=== PATIENT | female | born 1960 | race Caucasian/White ===

== ENCOUNTER 2022-04-25 14:07 | Outpatient (CLI) | payer OTHER ==
--- NOTE | 2022-04-25 21:51 | XRAY Report ---
PROCEDURE: Knee 4 View BILAT INDICATIONS: BILAT KNEE PAIN TECHNIQUE: 4 views of the bilateral knee(s) were acquired. COMPARISON: None. FINDINGS: Bones: There is prior left total knee arthroplasty. No evidence of hardware loosening or failure. Mod erate to severe tricompartmental osteoarthritis in right knee is seen most notably in medial femoral tibial compartment. No fractures or dislocations. No suspicious bony lesions. Soft tissues: No joint effusion. No suspicious soft tissue calcifications. IMPRESSION: Moderate to severe tricompartmental osteoarthritis in right knee most notably in medial femoral tibial compartment. Prior left total knee arthroplasty. Anatomic bilateral knee alignment. No fracture or dislocation. No gross hardware complication. No significant joint effusion. Reviewed by: Magdi Ovalle MD on 04/25/2022 9:50 PM PST Approved by: Magdi Ovalle MD on 04/25/2022 9:50 PM PST Station ID: [id number]
== END 2022-04-25 14:08 | disposition home or self-care (01) ==
LOC: DI.WOS 14:07
PROVIDERS: ATTEND Orthopaedic Surgery
DX: M17.11 Unilateral primary osteoarthritis, right knee (principal); Z96.652 Presence of left artificial knee joint; M25.562 Pain in left knee

== ENCOUNTER 2023-04-16 08:07 | Outpatient (CLI) | payer MEDICARE, OTHER ==
--- NOTE | 2023-04-16 15:34 | DEXA Report ---
PROCEDURE: Dexa Spine and/or Hip INDICATIONS: OSTEOPOROSIS TECHNIQUE: Dual energy x-ray absorptiometry (DXA) was performed on a [employer] System. Regions measur ed are the AP Spine, femoral neck, and if needed forearm. COMPARISON: None FINDINGS: Lumbar Spine: Bone Mineral Density 1.084 g/cm/cm,T score -0.8. Left Femoral Neck: Bone Mineral Density 0.765 g/cm/cm, T score -2.0. Left Hip: Bone Mineral Density 0.802 g/cm/cm,T score -1.6. (T score greater or equal to -1.0: NORMAL) (T score from -1.1 to -2.4: OSTEOPENIA) (T score less than or equal to -2.5 to: OSTEOPOROSIS) Impression: By WHO criteria, this patient has low bone density (osteopenia) most severe in the femoral neck. Patients with diagnosis of osteoporosis or osteopenia should have regular bone mineral density assess ment. For those eligible for Medicare, routine testing is allowed once every 2 years. Testing frequ ency can be increased for patients who have rapidly progressing disease or for those who are receivin g medical therapy to restore bone mass. Reviewed by: Elena Mijares MD on 04/16/2023 3:33 PM PST Approved by: Elena Mijares MD on 04/16/2023 3:33 PM PST Station ID: [id number]
== END 2023-04-16 08:08 | disposition home or self-care (01) ==
LOC: DI 08:07
PROVIDERS: ATTEND Physician Assistant
DX: M85.88 Other specified disorders of bone density and structure, other site (principal)

== ENCOUNTER 2023-04-30 08:56 | Outpatient (CLI) | payer MEDICARE, OTHER ==
--- NOTE | 2023-05-01 08:13 | SLEEP CARE CONSULTATION ---
Information from patient questionnaire entered by Hal Escobar. I have reviewed and concur with the information entered by Hal Escobar. This document represents the service I personally performed and the decisions made by me, Trever Jack MD, [facility]. History of Present Illness Service Date and Time: 04/30/2023 0856 Reason for Visit: New patient (DENTAL APPLIANCE) Chief Complaint: reports: Insomnia, Snoring, Frequent awakenings at night Date of Onset: 24+YRS Usual bedtime: 9PM Snores at night: Yes Observed to quit breathing while asleep: Yes Sleeps alone due to snoring: Yes Reasons for waking at night: reports: Choking, Pain, Bathroom Toss, Turn, or Twitch while sleeping: Yes Recalls having dreams: Yes Usually gets out of bed at: 7AM Feels refreshed in the morning: No Morning headache: No Sleepy or fatigued during the day: Yes Ever fallen asleep while driving: Yes Takes day naps: Yes Dreams during day naps: No Prior sleep studies: Yes Additional HPI information: I have the pleasure of seeing Mrs. Moura today regarding obstructive sleep apnea. As you know, she is a 63-year-old lady who was originally diagnosed with obstructive sleep apnea-hypopnea in 2001 and tried using a CPAP for 2 3 years. She said it did not work because she removed it during the night. She had another in-laboratory polysomnography in 2009 in [place] that showed an AHI of 34.7 and laura oxygen saturation of 79%. She was treated with oral appliance therapy. In 2014 she had another in-laboratory polysomnography with the oral appliance showing a residual AHI of 5.2. She continued to wear her oral appliance until a year ago when she lost 3 lower molar teeth. She notices that she is more fatigued this year. She started snoring again but her never said she stop breathing. She has lost 23 lbs since her sleep study in 2014. 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 Patient is and lives in [place]. Have you smoked in the past 12 months: No Alcohol use: Yes Alcohol amount and frequency: 1/2 GLASS 3-4 X YEAR Caffeine use: Yes Caffeine amount and frequency: 2-3 CUPS DAILY Family History Family history of sleep disordered breathing: Yes Family Hx Sleep Apnea: Father: Snoring Allergies and Home Medications Known drug allergies: Yes ( LISTED) Drug allergies reviewed: Yes Home medication list reviewed: Yes Allergy and home medication list: Allergies indomethacin [From Indocin] Allergy (Verified 04/25/23 15:07) Anaphylaxis metronidazole [From Flagyl] Allergy (Verified 04/25/23 15:07) Anaphylaxis aspirin Adverse Reaction (Verified 04/25/23 15:07) Unknown NSAIDS (Non-Steroidal Anti-Inflamma Adverse Reaction (Verified 04/25/23 15:07) Unknown Penicillins Adverse Reaction (Verified 04/25/23 15:07) Unknown Sulfa (Sulfonamide Antibiotics) Adverse Reaction (Verified 04/25/23 15:07) Unknown Review of Systems Weight loss over past 5 years: 5-7LBS Cardiovascular: reports: palpitations Respiratory: denies: shortness of breath, wheeze, sputum production, chronic cough, other Gastrointestinal: reports: difficulty swallowing Urinary: denies: incontinence, frequency, urgency, impotence, other Neurological: reports: gait or balance problems Psychiatric: reports: claustrophobia Ear/Nose/Throat: reports: dry mouth/throat, injury to nose, wisdom teeth removed Endocrine: reports: thyroid disease, sluggishness, too hot or cold Musculoskeletal: denies: joint pain, neck pain, back pain, joint swelling, muscle pain or cramping, mobility problems, other Immunologic: reports: allergies to food or environment Physical Exam Vital signs obtained and entered by: HAL Schwartz MA Blood Pressure: 156/87 (RIGHT ARM) Cuff size: regular Heart Rate: 76 O2 Saturation: 98 Height: 5 ft 2.5 in Weight: 127 lb 3.2 oz Body Mass Index: 22.8 BMI Classification: Normal Neck circumference: 13 Mood/affect: Normal HEENT: No craniofacial malformation Nostrils: patent to airflow Turbinates: normal Septum: deviated right Mouth and throat: narrow oropharynx Soft palate: long Hard palate: normal Uvula: normal Uvula visualization: 25% Mallampati Class III Tongue: normal in size Tonsils: small Chin and jaw: Retrognathia Neck: normal w/o lymphadenopathy or thyromegaly Heart: regular rate and rhythm Lungs: clear bilaterally Extremities: no edema or clubbing Neurologic: intact Impression and Plan IMPRESSION: 1. Obstructive Sleep Apnea-Hypopnea Syndrome, severe, as previously diagnosed 13 years ago. She was successfully treated with a mandibular advancing device. Presently, she is not treated because she lost lower molar teeth. She has lost significant amount of weight but she does have retrognathia. Different treatment options including Inspire therapy (hypoglossal nerve stimulation) were discussed. We will need a new sleep study. Plan: 1. Schedule polysomnography and return in 1 to 2 weeks after the study to discuss result and initiate therapy. 2. Avoid long distance driving or when feeling sleepy. 3. Avoid alcohol, sedative and muscle relaxant around bedtime. 4. Avoid sleeping supine. Follow up with Sleep Care in: 1-2 months Time Spent with Patient (minutes): 15
[2023-05-01 08:19] VITALS: BP 156/87; O2SAT 98
== END 2023-04-30 08:57 | disposition home or self-care (01) ==
LOC: SC 08:56
PROVIDERS: ATTEND Internal Medicine Pulmonary Disease
DX: G47.33 Obstructive sleep apnea (adult) (pediatric) (principal); M26.19 Other specified anomalies of jaw-cranial base relationship
CPT/HCPCS: 99202; G0463; 99212

== ENCOUNTER 2023-05-25 19:28 | Outpatient (CLI) | payer MEDICARE, OTHER | END 2023-05-25 19:29 | disposition home or self-care (01) | LOC: SC 19:28 | PROVIDERS: ATTEND Internal Medicine Pulmonary Disease | DX: G47.33 Obstructive sleep apnea (adult) (pediatric) (principal); G47.61 Periodic limb movement disorder | CPT/HCPCS: 95810 ==

== ENCOUNTER 2023-06-01 09:33 | Outpatient (CLI) | payer MEDICARE, OTHER ==
--- NOTE | 2023-06-01 10:01 | Sleep Patient Instructions ---
Sleep Center Visit Summary - Patient Visit Information Reason for Visit: Sleep study follow-up - Patient Instructions Additional Instructions: You are to start Positional therapy to control your sleep apnea. You may obtain positional belts or other commercial devices online. You may also use pillows to position yourself on your side or a T shirt with balls sewn into the back to help keep you on your side to sleep. We would like to follow up with you in a month to check effectiveness of therapy. Please call office to schedule a follow up appointment in the sleep care office 1-2 months. - Clinic Information Contact: [facility] [address] [place] [address] [email or web address] T: [phone]
--- NOTE | 2023-06-01 10:05 | SLEEP CARE CONSULTATION ---
Information from patient questionnaire entered by Amberly Escobar. I have reviewed and concur with the information entered by Amberly Escobar. This document represents the service I personally performed and the decisions made by , Marlene Manuel ARNP. History of Present Illness Service Date and Time: 06/01/2023 0933 Initial [place] Sleepiness Scale score: 10 (04/30/2023) Current [place] Sleepiness Scale score: 17 Additional HPI information: VIRGINIA ANGELA returns for follow up and results of the recently performed polysomnography. The sleep study showed mild obstructive sleep apnea with an average AHI of 8.7 and lauar oxygen saturation of 88%. She had severe PLMs not contributing to sleep fragmentation. I explained the pathophysiology behind obstructive sleep apnea. We then spent quite a bit of time discussing different treatment options. For mild obstructive sleep apnea, surgery and oral appliance are alternatives to nasal CPAP therapy but in moderate or severe cases, nasal CPAP is the most effective and reliable treatment. Because apnea is primarily in supine position, then positional management therapy could be effective. Methods discussed such as positioning with pillows, using a T-shirt with tennis balls in the back or commercial products that have a pillow format on back to prevent supine sleep. Patient counseled not drink alcohol less than 4 hours before bedtime as it can increase snoring and apnea. Patient was cautioned about risks of drowsy driving until sleepiness symptoms resolve. Patient denies drowsy driving. Sleep Study - Results Type of Sleep Study: Polysomnography (COMPLETED 05/25/23) Polysomnography/Home Sleep Study results: IMPRESSION: The quality of the study is good. The patient had normal sleep efficiency. The sleep architecture was abnormal for sleep fragmentation and lack of slow wave sleep (N3). Respiratory monitoring showed mild obstructive sleep apnea-hypopnea (AHI = 8.7) associated with frequent arousals, oxyhemoglobin desaturation and mild hypoxia (laura oxygen saturation of 88%). The respiratory events occurred almost exclusively during supine sleep (supine AHI = 34.9; non-supine = 1.60). Snore was light to very loud in intensity. There was severe periodic leg movement of sleep not contributing to the sleep fragmentation. Cardiac rhythm was normal sinus rhythm without significant arrhythmia. No abnormal behavior (parasomnia) observed during the night. Allergies and Home Medications Known drug allergies: Yes (as listed) Drug allergies reviewed: Yes Home medication list reviewed: Yes (no changes) Allergy and home medication list: Allergies indomethacin [From Indocin] Allergy (Verified 05/30/23 12:05) Anaphylaxis metronidazole [From Flagyl] Allergy (Verified 05/30/23 12:05) Anaphylaxis aspirin Adverse Reaction (Verified 05/30/23 12:05) Unknown NSAIDS (Non-Steroidal Anti-Inflamma Adverse Reaction (Verified 05/30/23 12:05) Unknown Penicillins Adverse Reaction (Verified 05/30/23 12:05) Unknown Sulfa (Sulfonamide Antibiotics) Adverse Reaction (Verified 05/30/23 12:05) Unknown Review of Systems Review of systems same as previous: Yes (no changes) Physical Exam Vital signs obtained and entered by: MARLENE GARCIA Blood Pressure: 142/79 Cuff size: regular (right arm) Heart Rate: 78 O2 Saturation: 99 Height: 5 ft 3 in Weight: 126 lb 12.8 oz Body Mass Index: 22.4 BMI Classification: Normal Impression and Plan 1. Obstructive Sleep Apnea-Hypopnea Syndrome, mild, with lowest oxygen saturation of 88%. Obviously this is the cause of the patients symptoms of unrefreshed sleep, and excessive daytime sleepiness. Positive pressure therapy could benefit asthma and gastric reflux. Since patients apnea is primarily in supine position, patient advised to try positional therapy and agreed with plan. She is also advised to maintain a healthy weight as this will reduce snoring and apnea. An oral appliance can also be used for snoring but often is not covered by insurance. Follow up is scheduled for one month to check effectiveness and if further evaluation indicated such a repeat study in supine position only to see if additional treatment indicated. 2. Periodic limb movement, severe, that did not fragment patients sleep. Periodic limb movement of sleep (PLMS) is characterized by episodes of repetitiv e limb movements that occur during sleep and usually involve the lower limbs. The etiology is unknown. Sleep hygiene methods can also improve sleep as well as lifestyle changes such as regular exercise. Patient was advised that no treatment is needed at this time. If symptoms increase, then further evaluation is indicated. * Positional therapy * Attempt to lose weight. * Avoid alcohol consumption near bedtime. * Avoid supine sleep * The patient is again cautioned about driving until sleepiness completely resolves. * Return in 1-2 months. I will assess response to therapy at that time. Counseling Topics: Sleeping position, Weight control Follow up with Sleep Care in: 1-2 months (Postional therapy) Visit Type: In Office Time Spent with Patient (minutes): 22 Provider Statement: I spent 100% of the Face to Face Visit with the patient with greater than 50% spent counseling the patient and coordination of care.
[2023-06-01 10:12] VITALS: BP 142/79; O2SAT 99
== END 2023-06-01 09:34 | disposition home or self-care (01) ==
LOC: SC 09:33
PROVIDERS: ATTEND Nurse Practitioner Family
DX: G47.33 Obstructive sleep apnea (adult) (pediatric) (principal); G47.61 Periodic limb movement disorder
CPT/HCPCS: 99213; G0463; 99212

== ENCOUNTER 2023-06-29 09:25 | Outpatient (CLI) | payer MEDICARE, OTHER ==
--- NOTE | 2023-06-29 09:44 | Sleep Patient Instructions ---
Sleep Center Visit Summary - Patient Visit Information Reason for Visit: One month followup for Positional therapy - Patient Instructions Additional Instructions: You were here for follow up of Positional therapy. You will be continued on Positional therapy. You should follow up with sleep care in 3 months. You may contact us sooner for any questions or concerns. - Clinic Information Contact: [facility] [address] [place] [id number] [email or web address] T: [phone]
--- NOTE | 2023-06-29 09:48 | SLEEP CARE CONSULTATION ---
Information from patient questionnaire entered by Amberly Escobar. I have reviewed and concur with the information entered by Amberly Escobar. This document represents the service I personally performed and the decisions made by , Marlene Manuel ARNP. History of Present Illness Service Date and Time: 06/29/2023924 Previous diagnosis: Mild, Obstructive Sleep Apnea-Hypopnea Syndrome AHI: 8.7 Reason for follow up: one month (F/U POSITIONAL) Type of Sleep Study: Polysomnography (COMPLETED 05/25/23) HPI additional information: VIRGINIA ANGELA was diagnosed to have mild, AHI 8.7, obstructive sleep apnea-hypopnea syndrome and returned today for Positional therapy one month follow-up. Sleep Study - Results Type of Sleep Study: Polysomnography (COMPLETED 05/25/23) CPAP Compliance Data Compliance data discussion: Using a pillow to elevated her head due to GERD and GAVIN. She is also using a wedge to stay on her sides. She is able to stay off her back well and getting good night sleep. Subjective On therapy, patient: reports: sleeping better, awakening more refreshed, being more awake and alert during the day, more rested overall. denies: drowsiness while driving Initial [place] Sleepiness Scale score: 10 (04/30/2023) Current [place] Sleepiness Scale score: 9 (06/29/23) Allergies and Home Medications Known drug allergies: Yes (as listed) Drug allergies reviewed: Yes Home medication list reviewed: Yes (Protonix) Allergy and home medication list: Allergies indomethacin [From Indocin] Allergy (Verified 06/27/23 11:44) Anaphylaxis metronidazole [From Flagyl] Allergy (Verified 06/27/23 11:44) Anaphylaxis aspirin Adverse Reaction (Verified 06/27/23 11:44) Unknown NSAIDS (Non-Steroidal Anti-Inflamma Adverse Reaction (Verified 06/27/23 11:44) Unknown Penicillins Adverse Reaction (Verified 06/27/23 11:44) Unknown Sulfa (Sulfonamide Antibiotics) Adverse Reaction (Verified 06/27/23 11:44) Unknown Review of Systems Review of systems same as previous: No (EGD GASTRITIS ACUTE) Physical Exam Vital signs obtained and entered by: AMBERLY Schwartz MA Blood Pressure: 148/84 (RIGHT ARM) Cuff size: regular Heart Rate: 86 O2 Saturation: 97 Height: 5 ft 3 in Weight: 128 lb 6.4 oz Body Mass Index: 22.7 BMI Classification: Normal Impression and Plan 1. Obstructive Sleep Apnea-Hypopnea Syndrome, mild. Using positional therapy, the patient has better sleep quality and is more rested overall. She states she finally found a combination that is letting her sleep well. She is currently dealing with gastritis due to her acid reflux. She also has a knee that locks up that she is going to have surgery on in July. She feels that the positional therapy is sustainable and starting to work well. She would like to continue with it at this time. We will follow up with her in 3 months. Patient's apnea severity and rationale for treatment to reduce apnea, improve sleep quality and reduce cardiovascular and cerebrovascular events was reviewed. Patient has history of gastric reflux. * Continue Positional therapy * Maintain a healthy weight * Call this office if any problems * Return for follow up in 3 months, or sooner if concerns arise Counseling Topics: Sleeping position, Weight control Follow up with Sleep Care in: 3 months Visit Type: In Office Time Spent with Patient (minutes): 15 Provider Statement: I spent 100% of the Face to Face Visit with the patient with greater than 50% spent counseling the patient and coordination of care.
[2023-06-29 09:51] VITALS: BP 148/84; O2SAT 97
== END 2023-06-29 09:26 | disposition home or self-care (01) ==
LOC: SC 09:25
PROVIDERS: ATTEND Nurse Practitioner Family
DX: G47.33 Obstructive sleep apnea (adult) (pediatric) (principal)
CPT/HCPCS: 99212; G0463

== ENCOUNTER 2023-10-30 08:35 | Outpatient (CLI) | payer MEDICARE, OTHER ==
--- NOTE | 2023-10-30 09:07 | Sleep Patient Instructions ---
Sleep Center Visit Summary - Patient Visit Information Reason for Visit: 3-month follow-up - Patient Instructions Additional Instructions: You were here for follow up of Positional therapy. You will be continued on positional therapy. You should follow up with sleep care in 12 months. You may contact us sooner for any questions or concerns. - Clinic Information Contact: [facility] [address] [place] [id number] [email or web address] T: [phone]
--- NOTE | 2023-10-30 09:13 | SLEEP CARE CONSULTATION ---
Information from patient questionnaire entered by Hal Escobar. I have reviewed and concur with the information entered by Hal Escobar. This document represents the service I personally performed and the decisions made by , Marlene Manuel ARNP. History of Present Illness Service Date and Time: 10/30/2023 0835 Previous diagnosis: Mild, Obstructive Sleep Apnea-Hypopnea Syndrome AHI: 8.7 (06/06/2023) Reason for follow up: three month (F/U POSITIONAL) Type of Sleep Study: Polysomnography (COMPLETED 05/25/23) HPI additional information: VIRGINIA ANGELA was diagnosed to have mild, AHI 8.7, obstructive sleep apnea-hypopnea syndrome and returned today for positional therapy three month follow-up. Sleep Study - Results Type of Sleep Study: Polysomnography (COMPLETED 05/25/23) CPAP Compliance Data Compliance data discussion: She says she is using a wedge pillow to help her stay on her side. She is able to stay off her back. Subjective On therapy, patient: reports: sleeping better, awakening more refreshed, being more awake and alert during the day, more rested overall. denies: drowsiness while driving Initial [place] Sleepiness Scale score: 10 (04/30/2023) Current [place] Sleepiness Scale score: 5 Allergies and Home Medications Known drug allergies: Yes (as listed) Drug allergies reviewed: Yes Home medication list reviewed: Yes (Protonix, Pepcid) Allergy and home medication list: Allergies indomethacin [From Indocin] Allergy (Verified 06/29/23 09:28) Anaphylaxis metronidazole [From Flagyl] Allergy (Verified 06/29/23 09:28) Anaphylaxis aspirin Adverse Reaction (Verified 06/29/23 09:28) Unknown NSAIDS (Non-Steroidal Anti-Inflamma Adverse Reaction (Verified 06/29/23 09:28) Unknown Penicillins Adverse Reaction (Verified 06/29/23 09:28) Unknown Sulfa (Sulfonamide Antibiotics) Adverse Reaction (Verified 06/29/23 09:28) Unknown Review of Systems Review of systems same as previous: No (Right knee replacement, acute gastritis) Physical Exam Vital signs obtained and entered by: HAL Schwartz MA Blood Pressure: 139/86 Heart Rate: 87 O2 Saturation: 98 Height: 5 ft 3 in Weight: 131 lb 9.6 oz Body Mass Index: 23.3 BMI Classification: Normal Impression and Plan 1. Obstructive Sleep Apnea-Hypopnea Syndrome, moderate. Using positional therapy, the patient has better sleep quality and is more rested overall. Patient feels that maintaining positional therapy is sustainable. She is doing well and her [place] score is at 5/10. She says she is moving back to [place]. I encouraged her to follow up with a sleep provider in her new area in about a year or as needed. She voiced understanding. Patient's apnea severity and rationale for treatment to reduce apnea, improve sleep quality and reduce cardiovascular and cerebrovascular events was reviewed. * Continue positional therapy * Call this office if any problems * Return for follow up in 12 months, or sooner if concerns arise Counseling Topics: Sleeping position Follow up with Sleep Care in: 1 year Visit Type: In Office Time Spent with Patient (minutes): 15 Provider Statement: I spent 100% of the Face to Face Visit with the patient with greater than 50% spent counseling the patient and coordination of care.
[2023-10-30 09:21] VITALS: BP 139/86; O2SAT 98
== END 2023-10-30 08:36 | disposition home or self-care (01) ==
LOC: SC 08:35
PROVIDERS: ATTEND Nurse Practitioner Family
DX: G47.33 Obstructive sleep apnea (adult) (pediatric) (principal)
CPT/HCPCS: 99212; G0463